=== PATIENT | female | born 1940 | race Caucasian/White ===

== ENCOUNTER → 2016-10-13 | Outpatient (CLI) | payer MEDICARE, MEDICAID | LOC: SP 10:45 | PROVIDERS: ATTEND Surgery | DX: L97.522 Non-pressure chronic ulcer of other part of left foot with fat layer exposed (principal) | CPT/HCPCS: 93925 ==

== ENCOUNTER → 2017-03-03 | Outpatient (CLI) | payer MEDICARE, MEDICAID ==
--- NOTE | 2017-03-03 12:16 | RADIOLOGY REPORT (SQ) ---
EXAM DESCRIPTION: FOOT BILATERAL 3 VIEWS COMPLETED DATE/TIME: 03/03/2017 12:06 pm REASON FOR STUDY: NON-PRS CHRONIC ULCER OTH PRT R L FOOT W FAT LAYER EXPOSED (L97.512,L97.5 L97.51 2 NON-PRS CHRONIC ULCER OTH PRT RIGHT FOOT W FAT LAYER L97.522 NON-PRS CHRONIC ULCER OTH PRT LEFT F OOT W FAT LAYER E11.621 TYPE 2 DIABETES MELLITUS WITH FOOT ULCER COMPARISON: None. NUMBER OF VIEWS: Three views. TECHNIQUE: AP, lateral and oblique without weight bearing radiographic images acquired of the right and left foot. LIMITATIONS: None. FINDINGS: MINERALIZATION: Diffuse osteopenia, particularly in the right foot. BONES: No acute fracture or dislocation. No worrisome bone lesions. No significant osteophytes. JOINTS: No erosions. No desi-articular osteopenia. No chondrocalcinosis. SOFT TISSUES: No swelling. No calcifications. OTHER: No other significant finding. IMPRESSION: DIFFUSE OSTEOPENIA, PARTICULARLY IN THE RIGHT FOOT. NO FOCAL BONY LESIONS. TECHNICAL DOCUMENTATION: JOB ID: [id number]- All Rights Reserved
[2017-03-03 12:21] LABS: ABSOLUTE BASOPHILS # (AUTO) 0.1 10^3/uL (0.0-0.2); ABSOLUTE EOSINOPHILS # (AUTO) 0.2 10^3/uL (0.0-0.6); ABSOLUTE LYMPHOCYTES (AUTO) 1.1 10^3/uL (0.5-4.7); ABSOLUTE MONOCYTES (AUTO) 0.4 10^3/uL (0.1-1.4); ABSOLUTE NEUT (AUTO) 5.2 10^3/uL (1.7-8.2); BASOPHILS % (AUTO) 0.9 % (0-2); HEMATOCRIT 32.6 % (36.0-47.0); HEMOGLOBIN 10.8 g/dL (12.0-15.5); LYMPHOCYTES % (AUTO) 16.3 % (13-45); MEAN CORPUSCULAR HEMOGLOBIN 30.9 pg (27.0-33.4); MEAN CORPUSCULAR HGB CONC 33.2 g/dL (32.0-36.0); MEAN CORPUSCULAR VOLUME 93 fl (80-97); MONOCYTES % (AUTO) 5.2 % (3-13); PLATELET COUNT 150 10^3/uL (150-450); RED CELL DISTRIBUTION WIDTH 14.2 % (11.5-14.0); SEGMENTED NEUTROPHILS % (AUTO) 74.6 % (42-78); TOTAL CELLS COUNTED % (AUTO) 100 %; WHITE BLOOD COUNT 6.9 10^3/uL (4.0-10.5)
[2017-03-03 12:59] LABS: ALANINE AMINOTRANSFERASE 38 U/L (9-52); ALBUMIN 3.8 g/dL (3.5-5.0); ALKALINE PHOSPHATASE 78 U/L (38-126); ANION GAP 9 (5-19); ASPARTATE AMINO TRANSFERASE 37 U/L (14-36); BILIRUBIN,DIRECT 0.3 mg/dL (0.0-0.4); BILIRUBIN,TOTAL 0.4 mg/dL (0.2-1.3); BLOOD UREA NITROGEN 48 mg/dL (7-20); C-REACTIVE PROTEIN 9.9 mg/L (<10.0); CALCIUM 9.3 mg/dL (8.4-10.2); CARBON DIOXIDE 25 mmol/L (22-30); CHLORIDE 106 mmol/L (98-107); GLUCOSE 198 mg/dL (75-110); POTASSIUM 4.6 mmol/L (3.6-5.0); SODIUM 140.4 mmol/L (137-145); TOTAL PROTEIN 6.7 g/dL (6.3-8.2)
[2017-03-03 13:01] LABS: ERYTHROCYTE SEDIMENTATION RATE 44 mm/hr (0-30)
== END ==
LOC: RAD 11:29
PROVIDERS: ATTEND Surgery
DX: E11.621 Type 2 diabetes mellitus with foot ulcer (principal); L97.512 Non-pressure chronic ulcer of other part of right foot with fat layer exposed; L97.522 Non-pressure chronic ulcer of other part of left foot with fat layer exposed
CPT/HCPCS: 36415; 80053; 83036; 85025; 85652; 86140

== ENCOUNTER → 2017-03-29 | Outpatient (CLI) | payer MEDICARE, MEDICAID ==
--- NOTE | 2017-03-30 16:05 | XCELERA REPORT ---
[address] [address] Lower Extremity Arterial Evaluation Name: ERIKA MENDEZ Age: 76 yrs Gender: Female : 1940 Patient Status: Outpatient Patient Location: Study Date: 03/29/2017 01:54 PM Procedure: A color flow and duplex scan of the lower extremity arteries was performed bilaterally with velocity and waveform anaylsis. Ankle brachial indicies performed. Reason For Study: ULCER Ordering Physician: CHILANGO ENGLISH Performed By: Ingrid Avila Measurements and Calculations Right Left RISK INVESTIGATOR PSV 139.1 128.9 cm/sec Prox PFA PSV -145.3 -82.0 cm/sec Prox SFA PSV -54.8 90.0 cm/sec Mid SFA PSV 62.9 76.6 cm/sec Dist SFA PSV -76.5 cm/sec Prox Pop A PSV 22.8 43.3 cm/sec Dist ARMINDA PSV 81.2 cm/sec Prox INSULATION PACKER PSV 35.2 cm/sec Dist INSULATION PACKER PSV 24.0 cm/sec Dist Ramya A PSV -70.4 cm/sec Niko Pedis PSV 48.3 cm/sec Right Side Arterial Evaluation Normal velocity and biphasic waveforms noted in the Common Femoral artery. Monophasic from Femoral to the Popliteal artery. Biphasic flow in a graft(? Fem-Popliteal). Occluded Anterior and Posterior Tibial arteries. 20-49 % stenosis at the Aorta Iliac inflow. With severe sequential disease. Ankle Brachial index shows occlusion. Left Side Arterial Evaluation Normal velocity and triphasic waveforms noted in the Common Femoral artery. Biphasic in the Femoral. Monophasic from Popliteal to the infrageniculate arteries. 20-49 % stenosis at the Femoral . With severe sequential disease. Ankle Brachial index not done due to ulceration. Interpretation Summary Severe hemodynamically significant lesions in the bilateral lower extremities, on duplex imaging, at rest. Worrying occlusion in right infrageniculate segment. Worse than previously, with some graft function preserved on right. : CHILANGO ENGLISH > Chilango English
--- NOTE | 2017-03-31 07:49 | XCELERA REPORT ---
[address] [address] Lower Extremity Venous Evaluation Name: ERIKA MENDEZ Age: 76 yrs Gender: Female : 1940 Patient Status: Outpatient Patient Location: Study Date: 03/29/2017 12:55 PM Procedure: A bilateral duplex scan of the lower extremity veins was performed. The evaluation included responses to compression and other maneuvers with patient in the supine and standing positions to assess venous insufficiency. Reason For Study: ULCER Ordering Physician: JOSE ELIAS ENGLISH Performed By: Ingrid Avila Right Sided Venous Evaluation Deep venous system evaluation shows patent veins with no significant reflux. Sapheno Femoral junction: no reflux. Femoral vein reflux: no reflux. Greater Saphenous vein, Proximal thigh: reflux: no reflux. Greater Saphenous vein, Distal thigh: reflux: no reflux. Greater Saphenous vein, Proximal below knee: reflux: no reflux. No significant Perforators identified. Left Sided Venous Evaluation Normal vessel filling wall to wall, compression down to the infrageniculate veins. Common Femoral vein reflux: none. No other deep vein abnormality. Greater Saphenous vein, below knee, proximal: 4 second reflux. 2.1 mm diameter. Greater Saphenous vein, below knee, mid: 2.5 second reflux. 6 mm diameter. Greater Saphenous vein, below knee, distal: no reflux. Small Saphenous vein: reflux: none. Interpretation Summary No duplex evidence of DVT or obstruction in the bilateral lower extremities. Limited left Greater Saphenous reflux, as noted. : JOSE ELIAS ENGLISH > Jose Elias English
== END ==
LOC: SP 12:36
PROVIDERS: ATTEND Surgery
DX: E11.621 Type 2 diabetes mellitus with foot ulcer (principal); L97.512 Non-pressure chronic ulcer of other part of right foot with fat layer exposed; L97.522 Non-pressure chronic ulcer of other part of left foot with fat layer exposed
CPT/HCPCS: 93925; 93970

== ENCOUNTER 2017-06-08 08:14 | Day surgery (SDC) | payer MEDICARE, MEDICAID ==
[2017-06-02 12:21] LABS: HEMATOCRIT 32.1 % (36.0-47.0); HEMOGLOBIN 10.8 g/dL (12.0-15.5); MEAN CORPUSCULAR HEMOGLOBIN 31.1 pg (27.0-33.4); MEAN CORPUSCULAR HGB CONC 33.7 g/dL (32.0-36.0); MEAN CORPUSCULAR VOLUME 92 fl (80-97); PLATELET COUNT 176 10^3/uL (150-450); RED BLOOD COUNT 3.48 10^6/uL (3.72-5.28); RED CELL DISTRIBUTION WIDTH 15.7 % (11.5-14.0); WHITE BLOOD COUNT 6.2 10^3/uL (4.0-10.5)
[2017-06-04 14:36] LABS: ANION GAP 18 (5-19); BLOOD UREA NITROGEN 51 mg/dL (7-20); CALCIUM 9.3 mg/dL (8.4-10.2); CARBON DIOXIDE 21 mmol/L (22-30); CHLORIDE 105 mmol/L (98-107); GLUCOSE 158 mg/dL (75-110); POTASSIUM 4.9 mmol/L (3.6-5.0); SODIUM 144.2 mmol/L (137-145)
--- NOTE | 2017-06-04 18:22 | EKG REPORT ---
SEVERITY:- ABNORMAL ECG - ATRIAL FIBRILLATION LEFT BUNDLE BRANCH BLOCK : Confirmed by: Matthew Cortes MD 04-Jun-2017 18:21:39
[~2017-06-08 08:14] MED LIST: BACITRACIN INJ 50,000 UNIT VIAL ONE; BUPIVACAINE HCL 0.25 % INJ/PF (2.5 MG/1 ML) 30 ML VIAL ONE; CEFAZOLIN 1 GM/D5W RTU 1 GM/50 ML RTUPB IV PRN; COLLAGENASE CLOSTRIDIUM HIST. OINT 30 GM ONE; LACTATED RINGERS 1000 ML IV PRN; LIDOCAINE 0.5% INJ-PF (5 MG/ML) 50 ML SDV ONE; LIDOCAINE 0.5% INJ-PF (5 MG/ML) 50 ML SDV SUBCUT PRN; SILVER SULFADIAZINE 1% CREAM 25 GM ONE
[2017-06-08] MEDS ORDERED: ALBUTEROL SULFATE 0.083% NEB 2.5 MG/3 ML AMPUL NEB ONE (09:08)
[2017-06-08] MEDS ORDERED: METOCLOPRAMIDE HCL INJ/PF 10 MG/2 ML SDV IV ONE (09:30)
[2017-06-08] MEDS ORDERED: FENTANYL CITRATE INJ/PF 100 MCG/2 ML AMPUL ONE (13:02)
[2017-06-08] MEDS ORDERED: MIDAZOLAM 2 MG/2 ML INJ ONE (13:02)
[2017-06-08] MEDS ORDERED: PROPOFOL INJ 200 MG/20 ML VIAL IV ONE (13:02)
--- NOTE | 2017-06-08 13:36 | PDOC H&P ---
General Chief Complaint: Bilateral leg ulcers. Mostly arterial in origin. - Current Medications/Allergies Home Medications: Amlodipine Besylate [Norvasc 10 mg Tablet] 2.5 mg PO DAILY 05/23/15 [place]-3 Fatty Acids/Fish Oil [Fish Oil 1,000 mg Capsule] 1 each PO BID 05/23/15 Aspirin [Aspirin 81 mg Chewable Tablet] 81 mg PO DAILY 06/02/17 Atenolol [Tenormin 50 mg Tablet] 50 mg PO DAILY 06/02/17 Furosemide 20 mg PO DAILY 06/02/17 Insulin Aspart [Novolog Insulin 100 Unit/1 ml 10 ml] 0 unit SUBCUT .SLD SCALE Tramadol HCl [Ultram 50 mg Tablet] 100 mg PO TID 06/02/17 Ascorbic Acid [Vitamin C 500 mg Tablet] 500 mg PO DAILY 06/04/17 Diclofenac Sodium [Voltaren] 100 gm TP QID PRN 06/04/17 Glimepiride [Amaryl 4 mg Tablet] 4 mg PO DAILY 06/04/17 Isosorbide Mononitrate [Imdur 30 mg Tablet.er] 30 mg PO DAILY 06/04/17 Multivitamin/Iron/Folic Acid [Centrum Complete Multivit Tab] 1 each PO DAILY Pioglitazone HCl [Actos] 45 mg PO DAILY 06/04/17 Spironolactone [Aldactone 25 mg Tablet] 25 mg PO DAILY 06/04/17 Allergies/Adverse Reactions: clindamycin [Clindamycin] Allergy (Severe, Verified 06/02/17 09:58) destroys tissue codeine [Codeine] Allergy (Verified 06/02/17 09:58) trouble breathing oxycodone [Oxycodone] Allergy (Verified 06/02/17 09:58) breathing difficulty Past Medical History Cardiac Medical History: Reports: Atrial Fibrillation, Congestive Heart Failure , Hyperlipidema, Hypertension - ON MEDS Denies: Coronary Artery Disease, DVT, Myocardial Infarction, Pulmonary Embolism Pulmonary Medical History: Reports: Pneumonia - YRS AGO Denies: Asthma, Bronchitis, Chronic Obstructive Pulmonary Disease (COPD) Neurological Medical History: Denies: Seizures Endocrine Medical History: Reports: Diabetes Mellitus Type 2 GI Medical History: Denies: Cirrhosis, Hepatitis Musculoskeltal Medical History: Reports: Arthritis - GENERALIZED, HANDS, NECK, SHOULDER Hematology: Denies: Anemia Past Surgical History Past Surgical History: Reports: Carotid Endarterectomy - 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, Coronary Stent, Hysterectomy, Vascular Surgery - Renal artery stent Family History Family History: CVA, DM Parental Family History Reviewed: No Children Family History Reviewed: No Sibling(s) Family History Reviewed.: No Social History Smoking Status: Former Smoker Frequency of Alcohol Use: None Hx Recreational Drug Use: No Hx Prescription Drug Abuse: No Physical Exam Vital Signs: Temp Pulse Resp BP Pulse Ox 97.3 F 59 L 16 149/53 H 97 06/08/17 08:30 06/08/17 09:14 06/08/17 09:14 06/08/17 08:30 06/08/17 09:14 Intake & Output 06/07/17 06/08/17 06/09/17 06:59 06:59 06:59 Intake Total 0 Balance 0 Weight 81.65 kg Additional comments: Constitutional: Well-developed well-nourished lady, moderately increased body mass index. No apparent acute distress. Eyes: Mucous membranes pink and moist, pupils equal and reactive to light. Conjunctiva normal. Cornea normal. ENT: Hearing grossly normal. External pinna normal to inspection. Teeth mostly intact. Tongue normal to inspection. Cardiac: Heart sounds 1 and 2 normal. Respiratory breath sounds are present bilaterally, normal. Normal respiratory effort. Skin: Bilateral leg ulcer, necrotic on the left. Also ulcer in the right great toe. Psychiatric: Judgment, memory, insight seem normal. Mood is pleasant and appropriate. Extremities: Upper extremities show normal range of movement, except for limitations on the right with some flexion deformity secondary to CVA. Pulses present noted to the radial arteries. Capillary refill normal. No cyanosis noted. No muscle wasting noted. Lower extremities show normal range of movement on the left. Considerable flexion deformity on the right secondary to cardiovascular accident in the past.. Pulses present absent at the dorsalis pedis artery. Capillary refill normal. No cyanosis noted.. Impression/Plan Plan: In this patient with necrotic ulcers of the left leg, ulcer of the right, inability to obtain a good debridement in the clinic suggests the need for deeper anesthesia. She therefore presents for debridement of the left leg, possibly the right under local anesthesia with sedation. Risks benefits expected outcome and alternatives are familiar to her and her daughter. They wish to proceed.
[2017-06-08] MEDS ORDERED: DIPHENHYDRAMINE HCL 50 MG/ML VIAL IV PRN (14:02)
[2017-06-08] MEDS ORDERED: PROMETHAZINE HCL INJ 25 MG/1 ML VIAL IV PRN ×2 (14:02)
[2017-06-08] MEDS ORDERED: FENTANYL CITRATE INJ/PF 100 MCG/2 ML AMPUL IV PRN ×3 (14:02)
[2017-06-08] MEDS ORDERED: MEPERIDINE HCL/PF INJ 25 MG/1 ML DISP.SYRIN IV PRN (14:02)
[2017-06-08] MEDS ORDERED: MORPHINE SULFATE 10 MG/ML INJ IV PRN (14:02)
--- NOTE | 2017-06-08 14:07 | Discharge Summary ---
Discharge Summary (SDC) - Discharge Final Diagnosis: #1 bilateral leg, mostly arterial etiology. 2. Diabetes mellitus type 2. 3. Chronic kidney disease stage III. 4. Coronary artery disease. 5. Atrial fibrillation. 6. Previous stroke with right-sided hemiparesis. 7. Hypertension. Date of Surgery: 06/08/17 Discharge Date: 06/08/17 Condition: Fair Treatment or Instructions: Discharge home [after recovery per ASU criteria]. Diet , diabetic,as tolerated, when fully awake advance as tolerated. Activities within moderation encouraged. Follow up in my office by appointment on Wednesday of this week. Call for appointment. Leave wounds [covered], [keep clean and dry, until office visit in 1 week]. Hold of on school/work [until evaluation in office]. Meds per med rec. May shower [in 48 hrs], [try to keep operated area as dry as possible]. Referrals: XIAO SEBASTIAN PA [Primary Care Provider] - Discharge Diet: Other (Comments) - Diabetic. Respiratory Treatments at Home: Deep Breathing/Coughing Discharge Activity: Activity As Tolerated Report the Following to Your Physician Immediately: Shortness of Breath, Unusual Bleeding
--- NOTE | 2017-06-08 14:20 | Operative Report ---
Operative Report DATE OF SURGERY: 06/08/17 PREOPERATIVE DIAGNOSIS: #1 bilateral leg, mostly arterial etiology. 2. Diabetes mellitus type 2. 3. Chronic kidney disease stage III. 4. Coronary artery disease. 5. Atrial fibrillation. 6. Previous stroke with right-sided hemiparesis. 7. Hypertension. POSTOPERATIVE DIAGNOSIS: #1 bilateral leg, mostly arterial etiology. 2. Diabetes mellitus type 2. 3. Chronic kidney disease stage III. 4. Coronary artery disease. 5. Atrial fibrillation. 6. Previous stroke with right-sided hemiparesis. 7. Hypertension. OPERATION: Surgical, sharp, excisional debridement of left leg ulcer and also of right great toe ulcer and also of left great toe ulcer. SURGEON: CHILANGO MCCORMACK OPERATION SPECIALIST: None. ANESTHESIA: LMAC TISSUE REMOVED OR ALTERED: Necrotic subcutaneous tissue and fascia. COMPLICATIONS: None. ESTIMATED BLOOD LOSS: 5 mL. INTRAOPERATIVE FINDINGS: Of necrotic ulcers. Left leg measuring 4 x 3 cm mid anterior lateral necrosis extending to the fascia. Residual tissue after debridement looked viable. Small amount of bleeding from wound edges. Left great toe ulcer about 3 mm across, debrided of necrotic callus. Right great toe ulcer measuring about 3 x 2.5 cm with a thin layer of necrotic materials on moderate amount of granulation. Debrided of necrotic subcutaneous tissue. PROCEDURE: PROCEDURE: Both lower extremities were prepared with [Betadine] and draped out with sterile linen. After the"universal time-out", in which it was confirmed that the patient [did receive antibiotic], the procedure commenced. The patient was appropriately anesthetized. Using subcutaneous 0.5% lidocaine. The left leg wound was addressed. . The wound was debrided of non viable tissue using a 15 blade scalpel with removal of loose debris, as well. The wound was irrigated with saline. Necrotic materials were sent for culture. Hemostasis secured using cautery and also with a suture of 2-0 chromic catgut. The wound was dressed with Surgicel to the wound base and Kerlix in place with tape. The left great toe wound was addressed. . The wound was debrided of non viable tissue using a 15 blade scalpel with removal of loose debris, as well. The wound was irrigated with saline. Necrotic materials were discarded. Hemostasis secured using gentle pressure. The wound was dressed with Surgicel to the wound base and Kerlix in place with tape. The right great toe wound was addressed. . The wound was debrided of non viable tissue using a 15 blade scalpel with removal of loose debris, as well. The wound was irrigated with saline. Necrotic materials were discarded. Hemostasis secured using gentle pressure. The wound was dressed with Surgicel to the wound base and Kerlix in place with tape.
[2017-06-08] MEDS: FENTANYL CITRATE INJ/PF 100 MCG/2 ML AMPUL ONE ×2 (14:25→14:35)
[2017-06-08] MEDS ORDERED: ACETAMINOPHEN 100 ML IV ONE (14:59)
[2017-06-08] MEDS ORDERED: TRAMADOL HCL 50 MG TABLET PO ONE (16:15)
[2017-06-08 16:29] VITALS: BP 161/65
== END 2017-06-08 16:29 | disposition home or self-care (01) ==
LOC: OROUT 08:14
PROVIDERS: ATTEND Surgery
DX: L97.523 Non-pressure chronic ulcer of other part of left foot with necrosis of muscle (principal); L97.513 Non-pressure chronic ulcer of other part of right foot with necrosis of muscle; L97.812 Non-pressure chronic ulcer of other part of right lower leg with fat layer exposed; L03.115 Cellulitis of right lower limb; A49.02 Methicillin resistant Staphylococcus aureus infection, unspecified site; I25.10 Atherosclerotic heart disease of native coronary artery without angina pectoris; E11.22 Type 2 diabetes mellitus with diabetic chronic kidney disease; I12.9 Hypertensive chronic kidney disease with stage 1 through stage 4 chronic kidney disease, or unspecified chronic kidney disease; N18.3 Chronic kidney disease, stage 3 (moderate); I13.0 Hypertensive heart and chronic kidney disease with heart failure and stage 1 through stage 4 chronic kidney disease, or unspecified chronic kidney disease; I50.9 Heart failure, unspecified; I48.91 Unspecified atrial fibrillation; I69.351 Hemiplegia and hemiparesis following cerebral infarction affecting right dominant side; E78.5 Hyperlipidemia, unspecified; M19.90 Unspecified osteoarthritis, unspecified site; D64.9 Anemia, unspecified; Z79.899 Other long term (current) drug therapy; Z79.82 Long term (current) use of aspirin; Z79.4 Long term (current) use of insulin; Z79.84 Long term (current) use of oral hypoglycemic drugs; Z88.5 Allergy status to narcotic agent; Z88.1 Allergy status to other antibiotic agents; Z01.818 Encounter for other preprocedural examination
CPT/HCPCS: 93005; 36415 ×3; 87070; 87205; 82962; 84132; 85027; 87075; 87077; 80048; 87186; 93010; 94640; 11043; J2250; J3490 ×3; J0690; J1100; J3010; J2405; A9270 ×2; J0131; 1250; J2704